=== PATIENT | female | born 2000 | race Two or more races ===

== ENCOUNTER 2021-06-08 21:24 | Emergency (ER) | payer MEDICAID, OTHER ==
[~2021-06-08] VITALS: Ht 170.2 cm; Wt 75.7 kg
[2021-06-08 21:27] VITALS: BP 136/96
== END 2021-06-08 21:34 | disposition left against medical advice (07) ==
LOC: ER 21:24
DX: R06.02 Shortness of breath (principal); Z53.21 Procedure and treatment not carried out due to patient leaving prior to being seen by health care provider

== ENCOUNTER 2021-08-28 22:50 | Emergency (ER) | payer MEDICAID ==
[~2021-08-28] VITALS: Ht 170.2 cm; Wt 77.1 kg
[2021-08-29 03:15] VITALS: BP 119/78
== END 2021-08-29 03:02 | disposition home or self-care (01) ==
LOC: ER 22:50
DX: L02.31 Cutaneous abscess of buttock (principal); L73.9 Follicular disorder, unspecified; Z88.0 Allergy status to penicillin